=== PATIENT | male | born 1965 | race Caucasian/White ===

== ENCOUNTER 2019-01-07 20:19 | Emergency (ER) | payer OTHER ==
--- NOTE | 2019-01-07 20:24 | EDPHY ---
H & P Time Seen by Provider: 01/07/19 20:22 Constitutional: Initial Vital Signs Temperature (C) 36.8 C 01/07/19 20:23 Heart Rate 103 H 01/07/19 20:23 Respiratory Rate 16 01/07/19 20:23 Blood Pressure 170/98 H 01/07/19 20:23 O2 Sat (%) 95 01/07/19 20:23 O2 Delivery Mode Room Air Allergies/Adverse Reactions: No Known Allergies Allergy (Unverified 01/07/19 20:27) Home Medications: Medication Instructions Recorded NK [No Known Home Meds] 01/07/19 Medical Decision Making ED Course/Re-evaluation: CHIEF COMPLAINT: Ate edibles, dizzy, nausea HISTORY OF PRESENT ILLNESS: The patient is a 53 y/o male arriving with his after he became dizzy, faint , and nauseated secondary to eating two edibles today. He recently traveled to [place] from [place]. The patient ate two edibles at 17:30, 3 hours ago. Shortly after eating the edibles he developed his symptoms. He is also feeling very anxious and paranoid. As his symptoms have not alleviated, his brought him to the emergency department. No fever, headache, body aches, lightheadedness, chest pain, heart palpitations, shortness of breath, cough, abdominal pain, urinary or bowel complaints, numbness, paresthesias. REVIEW OF SYSTEMS: A comprehensive 10 system review of systems is otherwise negative aside from elements mentioned in the history of present illness and medical decision making. PHYSICAL EXAM: HR, BP, O2 Sat, RR. Temp noted General Appearance: Anxious, paranoid, diaphoretic, alert, well hydrated. Head: Atraumatic without scalp tenderness or obvious injury Eyes: Pupils equal, round, reactive to light and accommodation, EOMI, no trauma , no injection. Ears: Clear bilaterally, no perforation, normal landmarks Nose: Atraumatic, no rhinorrhea, clear. Throat: There is no erythema or exudates, no lesions, normal tonsils, mucus membranes moist. Neck: Supple, 2+ carotid upstroke, nontender, no lymphadenopathy. Respiratory: No retractions, no distress, no wheezes, and no accessory muscle use. Lungs are clear to auscultation bilaterally. Cardiovascular: Mild tachycardia, no murmurs, rubs, or gallops. Bilateral carotid, radial, dorsalis pedis, and posterior tibial pulses intact. Good capillary refill all extremities. Gastrointestinal: Abdomen is soft, nontender, non-distended, no masses, no rebound, no guarding, no peritoneal signs. Musculoskeletal: Normal active ROM of all extremities, atraumatic. Neurological: Alert, appropriate, and interactive. The patient has normal DTRs and non-focal cranial nerves, motor, sensory, and cerebellar exam. Skin: No rashes, good turgor, no nodules on palpation. Past medical history: Denies Past surgical history: Denies Family history: Denies Social history: at bedside, live sin [place], employed DIAGNOSTICS/PROCEDURES/CRITICAL CARE TIME: Not indicated. DIFFERENTIAL DIAGNOSIS: The differential diagnosis for the patient's dizziness included but was not limited to peripheral and central causes of marijuana ingestion, vertigo, orthostatic causes including dehydration, cardiogenic and neurogenic causes, and blood loss. MEDICAL DECISION MAKING The patient is a 53 y/o male arriving with his after he became dizzy, faint , and nauseated secondary to eating two edibles at 17:30, 2 hours ago. He recently traveled to [place] from [place]. On exam he is pale, diaphoretic, anxious, and mildly tachycardic. 1L IV NS, 1mg IV Ativan, and 4mg IV Zofran. 2125: I spoke with the patient's nurse, he is still nauseated. Additional 4 mg IV Zofran administered. 2154: Reassessed patient, he is feeling better. Return precautions provided; patient is comfortable with this plan. - Data Points Medications Given: Discontinued Medications Sodium Chloride (Ns) 1,000 mls @ 0 mls/hr IV EDNOW ONE; Wide Open PRN Reason: Protocol Stop: 01/07/19 20:34 Last Admin: 01/07/19 20:37 Dose: 1,000 mls Lorazepam (Ativan Injection) 1 mg IVP EDNOW ONE Stop: 01/07/19 20:34 Last Admin: 01/07/19 20:37 Dose: 1 mg Ondansetron HCl (Zofran) 4 mg IVP EDNOW ONE Stop: 01/07/19 20:34 Last Admin: 01/07/19 20:37 Dose: 4 mg Ondansetron HCl (Zofran) 4 mg IVP EDNOW ONE Stop: 01/07/19 21:27 Last Admin: 01/07/19 21:30 Dose: 4 mg Departure - Departure Disposition: Home, Routine, Self-Care Clinical Impression: Marijuana use Condition: Good Instructions: Acute Nausea and Vomiting (ED) Additional Instructions: 1. Drink plenty of fluids. 2. Take Zofran as prescribed. 3. Follow-up with your primary doctor within 72 hours. 4. Return to the Emergency Department for fever, chest pain, shortness of breath , increasing pain or other worsening of condition. Referrals: [facility],. [Clinic] - As per Instructions Report Scribed for: Marty Walker Report Scribed by: An Luis Date of Report: 01/07/19 Time of Report: 21:55
[2019-01-07] MEDS ORDERED: ONDANSETRON 4 MG/2 ML VIAL IVP ONE ×2 (20:33→21:26)
[2019-01-07] MEDS ORDERED: LORazepam 2 MG/ML INJ IVP ONE (20:33)
[2019-01-07] MEDS ORDERED: NS 1,000 ML IV ONE ×2 (20:33→21:10)
[2019-01-07] MEDS ORDERED: ONDANSETRON 4 MG/2 ML VIAL ONE (20:34)
[2019-01-07] MEDS ORDERED: LORazepam 2 MG/ML INJ ONE (20:34)
[2019-01-07] MEDS ORDERED: ONDANSETRON 4MG PREPACK#2 BTL TAKEHOME ONE (21:55)
[2019-01-07 21:56] VITALS: BP 117/63
== END 2019-01-07 22:03 | disposition home or self-care (01) ==
DX: F12.90 Cannabis use, unspecified, uncomplicated (principal); R11.0 Nausea; E86.9 Volume depletion, unspecified
CPT/HCPCS: 96374; J2060; J2405